=== PATIENT | male | born 1950 | race Native Hawaiian/Other Pacific Islander ===

== ENCOUNTER 2017-07-11 20:23 | Emergency (ER) | payer OTHER ==
[2017-07-11] MEDS ORDERED: SODIUM CHLORIDE 0.9% 1,000 ML IV ONE ×2 (20:49→23:14)
[2017-07-11] MEDS ORDERED: ONDANSETRON 4 MG/2 ML VIAL IVP STA (20:49)
[2017-07-11] MEDS ORDERED: MORPHINE 2 MG/ML CARPUJECT IVP STA ×2 (20:54→23:49)
[2017-07-11] MEDS ORDERED: ONDANSETRON 4 MG/2 ML VIAL ONE (20:55)
--- NOTE | 2017-07-11 20:57 | ED Physician Documentation ---
History of Present Illness - Stated complaint Stated Complaint: NVD - Chief complaint Chief Complaint: Abd Pain - Additonal information Additional information: hx from pt 66 male visiting from [place] his care is through [facility] he is 10 yr s/p colostomy done for an infection possibly ulcerative colitis ( will try and get records) had had abd pain some distension, NV and dec stool output into bag (only water when usually formed) no fever no pain or swelling Review of Systems Constitutional: denies: Fever, Chills Cardiac: denies: Chest pain / pressure Respiratory: denies: Dyspnea GI: reports: Abdominal Pain, Nausea, Vomiting, Diarrhea (watery output into colostomy bag) Endocrine: denies: Easy bruising / bleeding Immunocompromised: denies: Immunocompromised PD PAST MEDICAL HISTORY - Past Medical History Past Medical History: Yes Cardiovascular: Hypertension, MA GI: Other - Past Surgical History General: Other - Present Medications Home Medications: Ambulatory Orders Medication Instructions Recorded Confirmed Albuterol Sulf [Ventolin Hfa 1 - 2 puffs INH Q4HR PRN 07/11/17 07/11/17 Inhaler] Amlodipine Besylate 10 mg PO DAILY 07/11/17 07/11/17 Atenolol 25 mg PO DAILY 07/11/17 07/11/17 Atorvastatin Calcium 80 mg PO DAILY 07/11/17 07/11/17 Azelastine HCl 2 spray NS BID 07/11/17 07/11/17 Desonide [Desonate] 1 applic TOP BID 07/11/17 07/11/17 Fluticasone [Flonase] 1 sprays ALFRED DAILY 07/11/17 07/11/17 Fluticasone/Salmeterol [Advair Hfa 2 puffs INH BID 07/11/17 07/11/17 230-21 Mcg Inhaler] Lisinopril 40 mg PO DAILY 07/11/17 07/11/17 Multivitamin [Multiple Vitamins] 1 each PO DAILY 07/11/17 07/11/17 Omeprazole 20 mg PO DAILY 07/11/17 07/11/17 Ubidecarenone [Coenzyme Q-10] 200 mg PO DAILY 07/11/17 07/11/17 Zolpidem Tartrate [Ambien Cr] 6.25 mg PO DAILY PM 07/11/17 07/11/17 - Allergies Allergies/Adverse Reactions: Allergies Allergy/AdvReac Type Severity Reaction Status Date / Time No Known Drug Allergies Allergy Verified 07/11/17 20:33 - Social History Does the pt smoke?: No Smoking Status: Never smoker - Immunizations Immunizations are current?: Yes PD ED PE NORMAL - Vitals Vital signs reviewed: Yes - Cardiac Cardiac: RRR - Respiratory Respiratory: No respiratory distress, Clear bilaterally - Abdomen Abdomen: Other (dec BS, mild distension, peristomal hernia if soft and reducible , diffuse TTP including hernia, no guarding rebound) - Derm Derm: Normal color - Extremities Extremities: No tenderness to palpate, Normal ROM s pain, No edema, No calf tenderness / cord - Neuro Neuro: Alert and oriented X 3 - Psych Psych: Normal mood Results - Vitals Vitals: Vital Signs - 24 hr 07/11/17 07/11/17 07/12/17 20:30 21:45 00:06 Temperature 36.2 C L Heart Rate 92 87 86 Respiratory 18 18 16 Rate Blood Pressure 127/70 118/69 141/69 H O2 Saturation 99 100 96 07/12/17 01:58 Temperature Heart Rate 89 Respiratory 16 Rate Blood Pressure 147/65 H O2 Saturation 93 Oxygen O2 Source Room air - Labs Labs: Laboratory Tests 07/11/17 07/11/17 20:56 20:56 WBC 12.1 H RBC 4.45 L Hgb 14.0 Hct 41.8 L MCV 94.0 MCH 31.4 H MCHC 33.5 RDW 13.2 Plt Count 204 MPV 8.6 Neut # 11.0 H Lymph # 0.4 L Dunn # 0.7 Eos # 0.0 Baso # 0.0 Absolute Nucleated RBC 0.00 Nucleated RBCs 0.0 Sodium 140 Potassium 4.1 Chloride 110 Carbon Dioxide 21 Anion Gap 9.0 BUN 25 H Creatinine 1.1 Estimated GFR (MDRD) 67 L Glucose 153 H Calcium 9.6 Total Bilirubin 1.3 H AST 37 ALT 45 Alkaline Phosphatase 95 Total Protein 8.4 H Albumin 4.7 Globulin 3.7 Albumin/Globulin Ratio 1.3 Lipase 32 - Rads (name of study) CT abd pelvis with IV con Radiology: See rad report (s/p colectomy, RLQ ostomy, multiple mildly dilated small bowel loops with trasnition point RLQ parastomal hernia could be obstructed), Other (I spoke to radiologist and he advises this obstructon dows not seem to be due to an incarcerated/strangulated hernia but rather the transition point is within the large hernia sack) PD MEDICAL DECISION MAKING - ED course ED course: d/w Dr Simon who initially planned to admit pt, came to eval pt and based on his exam and review of CT feels pt has an incarcerated hernia and needs surgery but not emergently and recommends pt be transferred to a tertiary care facility due to side of hernia and prior mesh, I spoke to Dr Antoine and Stevie and she had further questions so Dr Antoine and Dr Simon spoke and Dr Antoine agrees to accept pt in transfer - see Dr Mosley consult pt remained stable, pain controlled, pt declined NG Departure - Departure Disposition: 02 Transfer Acute Care Hosp Clinical Impression: Small bowel obstruction, Hernia due to colostomy
[2017-07-11 21:03] LABS: BASOPHILS % (AUTO) 0.1 %; HCT - HEMATOCRIT 41.8 % (42.0-52.0); LYMPHOCYTES # (AUTO) 0.4 10^3/uL (1.5-3.5); LYMPHOCYTES % (AUTO) 3.5 %; MEAN CORPUSCULAR HEMOGLOBIN 31.4 pg (27.0-31.0); MEAN CORPUSCULAR HGB CONC 33.5 g/dL (32.0-36.0); MEAN PLATELET VOLUME 8.6 fL (7.4-11.4); MONOCYTES # (AUTO) 0.7 10^3/uL (0.0-1.0); MONOCYTES % (AUTO) 5.5 %; NEUTROPHILS % (AUTO) 90.9 %; RED BLOOD COUNT 4.45 10^6/uL (4.70-6.10); RED CELL DISTRIBUTION WIDTH 13.2 % (12.0-15.0); UNCORRECTED WHITE BLOOD COUNT 12.1 x10^3/uL; WHITE BLOOD COUNT 12.1 x10^3/uL (4.8-10.8)
[2017-07-11] MEDS ORDERED: MORPHINE 2 MG/ML CARPUJECT ONE (21:06)
[2017-07-11 21:17] LABS: ALBUMIN/GLOBULIN RATIO 1.3 (1.0-2.2); BILIRUBIN,TOTAL 1.3 mg/dL (0.2-1.0); CALCIUM 9.6 mg/dL (8.5-10.3); CREATININE 1.1 mg/dL (0.6-1.2); POTASSIUM 4.1 mmol/L (3.5-5.0); TOTAL PROTEIN 8.4 g/dL (6.7-8.2)
[2017-07-11] MEDS ORDERED: IOPAMIDOL-300 100 ML VIAL IVP ONE (22:20)
--- NOTE | 2017-07-11 22:45 | CT Preliminary Report ---
Exam: CT Abdomen/Pelvis W/ IMPRESSION: 1. Status post colectomy with right lower quadrant ostomy. 2. Multiple mildly dilated small bowel loops with a transition point in the right lower quadrant para stomal hernia. Findings could represent functional obstruction. This could be the source of the decre ased ostomy output. 3. No new adenopathy. [facility] SITE ID: [id number]
--- NOTE | 2017-07-11 22:54 | CT Report ---
EXAM: CT ABDOMEN AND PELVIS EXAM DATE: 07/11/2017 10:23 PM. CLINICAL HISTORY: Abdominal pain, nausea/vomiting, decreased output into colostomy. COMPARISONS: None. TECHNIQUE: Routine helical CT imaging was performed through the abdomen and pelvis. IV contrast: 100 mL of Isovue-300. Enteric contrast: No. Reconstructions: Coronal and sagittal. In accordance with CT protocol optimization, one or more of the following dose reduction techniques w ere utilized for this exam: automated exposure control, adjustment of mA and/or KV based on patient s ize, or use of iterative reconstructive technique. FINDINGS: Lung Bases: Coronary artery disease is noted in all the major coronary vessels. Small hiatal hernia. No effusions. Liver: No mass or intrahepatic bile duct dilation. Small liver cyst noted in the liver dome. Gallbladder/Bile Ducts: Gallstones without gallbladder wall thickening. Common bile duct is normal in caliber. Spleen: Normal. Pancreas: Normal. Adrenal Glands: Normal. Kidneys: Simple renal cysts are noted. No masses or hydronephrosis. Peritoneal Cavity/Bowel: Normal stomach. Patient is status post colectomy with a right lower quadrant ostomy. There is a large parastomal hernia at the right lower quadrant ostomy with multiple mildly d ilated mid to distal small bowel loops with the apparent transition point within the parastomal herni a on image 60. No pneumatosis is present. No bulky retroperitoneal, mesenteric or pelvic adenopathy. Pelvic Organs: Seminal vesicle and prostate enlargement. Normal bladder. No pelvic mass or adenopathy . Vasculature: Diffuse atheromatous plaques are present in the abdominal aorta and branch vessels. No a neurysm. Normal IVC. Bones: Small sclerotic focus in the left pubic bone at the level of the left acetabulum. No cortical breakthrough. No additional concerning sclerotic or osteolytic lesions. Other: 2 small epigastric hernias containing fat. No incarcerated bowel. IMPRESSION: 1. Status post colectomy with right lower quadrant ostomy. 2. Multiple mildly dilated small bowel loops with a transition point in the right lower quadrant para stomal hernia. Findings could represent functional obstruction. This could be the source of the decre ased ostomy output. 3. Cholelithiasis. 4. No new adenopathy. [facility] Referring Provider Line: [phone] SITE ID: [id number]
[2017-07-12] MEDS ORDERED: MORPHINE 2 MG/ML CARPUJECT ONE (00:11)
[2017-07-12 01:59] VITALS: BP 147/65
--- NOTE | 2017-07-12 03:50 | CONSULTATION NOTE ---
DATE OF CONSULTATION: 07/12/2017 00:00:00 REASON FOR CONSULTATION: Recurrent incarcerated parastomal hernia. REFERRING PHYSICIAN: Dr. Tripp. HISTORY OF PRESENT ILLNESS: The patient is a 66-year-old male who is visiting from [place]. He had presented with a 1-day history of abdominal pain, nausea and vomiting. He has been throwing up what he has eaten. He is not bilious at this time. He states that he has diminished output through his ileostomy being only a small amount of liquid. He does have some constant pain in the abdomen, but it is mild at the current time. He denies any fever or chills. His history is significant, in which he had been diagnosed with ulcerative colitis in the past. He underwent a total colectomy and ileostomy placement. In 2005, he had underwent a parastomal hernia repair in [place], [place]. He had developed a recurrent hernia and at that time, the surgeon declined to repair it for unknown reason. The patient has never had any issues up until the current time with the recurrent hernia. PAST SURGICAL HISTORY 1. CABG. 2. Total colectomy with ileostomy. 3. Repair of parastomal hernia. PAST MEDICAL HISTORY 1. Ulcerative colitis. 2. Coronary artery disease status post coronary artery bypass in the and he sees his family doctor each year and has not had any issues cardiac reyes at the current time. 3. Hypertension. 4. Hyperlipidemia. MEDICATIONS 1. Atenolol. 2. Lipitor. 3. Prinivil. 4. Norvasc. ALLERGIES TO MEDICATIONS: NONE. HABITS: The patient denies any smoking, alcohol or drug use. SOCIAL HISTORY: The patient is currently visiting his sister from [place]. FAMILY HISTORY: Noncontributory. REVIEW OF SYSTEMS: A complete review of systems was obtained. Pertinent positives are gastrointestinal with abdominal pain, nausea, and vomiting. A 12- point review of systems obtained with pertinent positives described and all others being negative. PHYSICAL EXAMINATION VITAL SIGNS: Temperature is 36.2, heart rate 92, respiration 18, blood pressure 127/70. GENERAL: The patient is lying in bed in no distress at the current time. EYES: Nonicteric. NECK: No lymphadenopathy. HEART: Regular. LUNGS: Clear. BACK: Nontender. ABDOMEN: Minimally distended. He has an ostomy in the right lower quadrant. He has mild tenderness around the hernia. The hernia is not reducible. GROIN: No hernias. EXTREMITIES: No edema or cyanosis. NEUROLOGICAL: The patient is neurologically intact without any deficits. PSYCHOLOGICAL: The patient is coherent, cooperative, and appears to answer questions fully. DIAGNOSTIC DATA: Sodium 140, potassium 4.1, BUN 25, creatinine 1.1, total bilirubin of 1.3. White blood cell count of 12, hemoglobin 14, platelets of 204. CT scan of the abdomen and pelvis shows a large incarcerated parastomal hernia on the right lower quadrant with multiple mildly dilated mid to distal small bowel loops with apparent transition point within the peristomal hernia. ASSESSMENT: Abdominal pain, nausea, vomiting secondary to incarcerated recurrent parastomal hernia. This is a large recurrent parastomal hernia and being recurrent, I would recommend the patient be transferred to a higher level of care being a tertiary center as it would be inappropriate to repair this type of complex hernia at a critical access hospital. Therefore, the recommendation is to transfer him to a higher level of care. PLAN: Recommendation to transfer to a tertiary center that has the expertise and the facility to repair this recurrent incarcerated large parastomal hernia. JOB #: [id number] EXT JOB #:[id number] [id number]
== END 2017-07-12 04:11 | disposition short-term general hospital (02) ==
LOC: ED 20:23
DX: K46.0 Unspecified abdominal hernia with obstruction, without gangrene (principal); Z93.3 Colostomy status; I10 Essential (primary) hypertension; I25.2 Old myocardial infarction
CPT/HCPCS: 36415; 74177; 80053; 83690; 85025; 96361; 96374; 96375; 96376; 99284; Q9967

== ENCOUNTER 2017-07-12 04:14 | Outpatient (CLI) | payer OTHER | END 2017-07-12 04:15 | disposition short-term general hospital (02) | LOC: EMS 04:14 | PROVIDERS: ATTEND Surgery | DX: K56.60 Unspecified intestinal obstruction (principal); K43.5 Parastomal hernia without obstruction or gangrene | CPT/HCPCS: A0170; A0425; A0426 ==